=== PATIENT | male | born 1995 | race Caucasian/White ===

== ENCOUNTER 2023-09-06 10:55 | Emergency (ER) | payer OTHER, SELFPAY ==
[2023-09-06 10:57] VITALS: BP 134/76
[2023-09-06 11:30] VITALS: BMI 29.4
[2023-09-06 11:38] VITALS: BP 134/84
--- NOTE | 2023-09-06 11:55 | ED.GENMED ---
History of Present Illness
<Leann Rosas PA-C - Last Filed: 09/08/23 23:58>
General
Chief Complaint: Breathing Problem
Source: patient
Exam Limitations: none
Time Seen by Provider: 09/06/23 11:13
Nursing documentation reviewed up to this point in time: agreed with
Travel History
Have you had any contact with someone who has COVID-19?: No
Do you have any symptoms of coronavirus? Fever > 100 degrees, chills, cough, shortness of breath, sore throat, loss of taste or smell, muscle aches, or headache?: No
History of Present Illness
History of Present Illness:
Patient is a 28-year-old male with history exercise-induced asthma and ADHD presenting for evaluation of persistent fatigue and fever over the past few months with an associated episode of fainting last night. Patient was diagnosed with pneumonia
by PCP in early July and started on a course of antibiotics and steroid. He states that he never fully returned to normal and has been suffering from fatigue ever since. Starting on Wednesday he was feeling especially fatigued and then proceeded
to have multiple bouts of diarrhea throughout the day on Wednesday. Diarrhea has since stopped. Last night he states that he got up from bed for his inhaler since he was feeling short of breath - and while in the bathroom he felt sweaty and
fainted. He did not hit his head. His girlfriend quickly came in and quickly regained consciousness. He endorses fever, cough, congestion, shortness of breath. No chest pain, belly pain, nausea, sore throat.
He has been taking tylenol and mucinex as needed for fever and nasal congestion.
Phy Exam
<Leann Rosas PA-C - Last Filed: 09/08/23 23:58>
Physical Exam
Physical Exam:
General: In mild distress and non-toxic
Vitals: Hemodynamically stable, low-grade fever 99.2 F
HEENT: Atraumatic, normocephalic; pupils equal round react light bilaterally, extraocular muscles intact, protecting airway
Neck: appears supple, no meningeal signs
CV: Regular rate and rhythm, heart sounds normal, no evidence of cyanosis
Resp: No evidence of respiratory stress, lungs clear, no accessory muscle use
Abd: Soft, nontender, non-distended
Extremities: No deformities, no evidence of cyanosis edema
Neuro: alert and oriented to person place time, speech normal, no focal motor deficit
Psych: Somewhat anxious appearing
Skin: Intact, no rashes
Course
<Leann Rosas PA-C - Last Filed: 09/08/23 23:58>
Orders/Labs/Results
Orders:
Orders
09/06/23 11:10
EKG [Electrocardiogram (*1)] Urgent
Reason for Study: Shortness of Breath
09/06/23 11:11
EKG- Treatment ONCE
09/06/23 11:45
Monotest Urgent
09/06/23 11:52
CMP [Comprehensive Metabolic Panel] Urgent
COVID-19 Antigen Urgent
Source: Nasal Swab
Complete Blood Count/With Diff Urgent
INF RAPID [Influenza A+B Rapid Molecular] Urgent
ISABELLA Source: Nasal Swab
Specimen Description:
09/06/23 12:12
CR Chest - 2 Views Urgent
Comment:
Reason For Exam: shortness of breath, cough
09/06/23 12:44
0.9% Sodium Chloride 1000 ml [Nss] 1,000 ml IV BOLUS
Ipratropium/Albuterol Sulfate [Duoneb] 3 ml INH R NOW ONE
Abnormal Lab Results
09/06/23
11:52
WBC 4.3 L 10^3/uL
(4.8-10.8)
Absolute Lymphs (auto) 0.8 L 10^3/uL
(1.2-3.4)
Lymphocytes % 19.0 L %
(20.5-51.1)
Monocytes % 13.0 H %
(1.7-9.3)
Glucose 152 H mg/dl
(70-99)
09/06/23 11:52
09/06/23 11:52
Vital Signs
Initial and Last Documented VS:
Initial Vital Signs
Temp Pulse Resp BP Pulse Ox
99.2 F 97 16 134/76 98
09/06/23 10:57 09/06/23 10:57 09/06/23 10:57 09/06/23 10:57 09/06/23 10:57
Last Documented Vital Signs
Temp Pulse Resp BP Pulse Ox
99.2 F 97 19 132/72 100
09/06/23 10:57 09/06/23 14:45 09/06/23 14:45 09/06/23 14:00 09/06/23 13:44
<Pedro Guzmán DO - Last Filed: 09/06/23 12:48>
Orders/Labs/Results
Orders:
Orders
09/06/23 11:10
EKG [Electrocardiogram (*1)] Urgent
Reason for Study: Shortness of Breath
09/06/23 11:11
EKG- Treatment ONCE
09/06/23 11:45
Monotest Urgent
09/06/23 11:52
CMP [Comprehensive Metabolic Panel] Urgent
COVID-19 Antigen Urgent
Source: Nasal Swab
Complete Blood Count/With Diff Urgent
INF RAPID [Influenza A+B Rapid Molecular] Urgent
ISABELLA Source: Nasal Swab
Specimen Description:
09/06/23 12:12
CR Chest - 2 Views Urgent
Comment:
Reason For Exam: shortness of breath, cough
09/06/23 12:44
0.9% Sodium Chloride 1000 ml [Nss] 1,000 ml IV BOLUS
Ipratropium/Albuterol Sulfate [Duoneb] 3 ml INH R NOW ONE
Abnormal Lab Results
09/06/23
11:52
WBC 4.3 L 10^3/uL
(4.8-10.8)
Absolute Lymphs (auto) 0.8 L 10^3/uL
(1.2-3.4)
Lymphocytes % 19.0 L %
(20.5-51.1)
Monocytes % 13.0 H %
(1.7-9.3)
Glucose 152 H mg/dl
(70-99)
09/06/23 11:52
09/06/23 11:52
Vital Signs
Initial and Last Documented VS:
Initial Vital Signs
Temp Pulse Resp BP Pulse Ox
99.2 F 97 16 134/76 98
09/06/23 10:57 09/06/23 10:57 09/06/23 10:57 09/06/23 10:57 09/06/23 10:57
Last Documented Vital Signs
Temp Pulse Resp BP Pulse Ox
99.2 F 97 19 132/72 100
09/06/23 10:57 09/06/23 14:45 09/06/23 14:45 09/06/23 14:00 09/06/23 13:44
<Leann Rosas PA-C - Last Filed: 09/08/23 23:58>
MDM/Problems Addressed
Differential Diagnosis Includes:
viral URI, influenza, covid, mononucleosis, pneumonia, asthma exacerbation, sinusitis
MDM/Problems Addressed:
Patient is a 28-year-old male presenting for upper respiratory symptoms and fatigue ongoing for the past 2 months. Symptoms worsened acutely over the past few days and describes fever, chills, nasal congestion, body aches.
No chest pain or shortness of breath. 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 Patient mild to moderately ill-appearing on exam. He have very low-grade temp, otherwise hemodynamically stable. Heart rate regular,
lungs coarse but clear. No evidence of edema. Will get basic labs, check flu and COVID. Will check mono given persistent illnesses. Check chest x-ray. Will give DuoNeb.
CBC shows very mild leukopenia and cell insignificant viral illness. CMP unremarkable. Falls negative. COVID-negative. Patient is positive for influenza A.
Chest x-ray shows no evidence of acute disease. He is stable emergency department. He can be safely discharged with return precautions, primary care follow-up. Discussed Tamiflu with patient and patient's mom but given he has had symptoms for
over 48 hours will avoid for now. He can use albuterol inhaler that he has at home as needed for cough, wheezing. He should follow-up with primary care for further evaluation of frequent illnesses. patient and patient's mom comfortable this plan.
All questions answered.
Chronic conditions affecting care:
Asthma
Acute Exacerbation and/or Progression of Chronic Illness:
Influenza
<Leann Rosas PA-C - Last Filed: 09/08/23 23:58>
*Radiology
Radiology exam reviewed: preliminary read by ED provider and radiology read reviewed
*Pulse Oximetry
Patient hypoxic: no
*Te[employer] Route Aide Interpretation
Rate: normal
Interpretation: normal
Heart Rate: 94
Rhythm: sinus
*Critical Care Note
Total Time (30-74mins, 75-104mins- exclusive of procedures): Not Applicable
ED Attending Note
<Leann Rosas PA-C - Last Filed: 09/08/23 23:58>
-
Portions of this chart may have been created with voice recognition software.� Occasional wrong word or��sound alike� substitutions may have occurred due to the inherent limitations of voice recognition software.
<Pedro Guzmán DO - Last Filed: 09/06/23 12:48>
ED Attending Note
Patient seen and examined by attending physician: Yes
I performed the substantive portion of visit, reviewed & personally made and approve the management plan that is documented in note by myself or THIAGO.: Yes
ED Attending Note:
Patient is a 28-year-old male who has been ill intermittently since before . Patient works in preschool. Patient for the past 2 days has not been feeling well with increasing nasal congestion, decreased oral intake. Patient has had
fever, chills, weakness. Patient's had mild shortness of breath and using an inhaler. On physical exam patient does look mildly to moderately ill. Patient has mild dry mucous membranes. Heart is regular lungs are coarse but clear and abdomen
soft nontender. Patient has no edema. Patient tested positive for influenza. It is not surprising given the patient's CBC results. Will check a chest x-ray. Anticipate the patient being discharged.
Discharge Plan
Departure
Patient Disposition: Home (Routine Discharge)
Date of Disposition: 09/06/23
Time of Disposition: 14:29
Patient with high blood pressure during this ER visit?: Yes
Condition: Good
Covid-19: Negative COVID-19
Discharge Problem:
Influenza A
Instructions: Asthma, Adult (DC), Flu, Adult (DC), BLOOD PRESSURE
Referrals:
Jonas Peninngton MD [Family Provider] - Follow up in 1 week
Stand Alone Forms: Return to Work
Activity Restrictions/Additional Instructions:
-Return to the emergency department with high fevers, chest pain, shortness of breath/difficulty breathing, coughing up blood or colored sputum, intractable vomiting, worsening in current symptoms, or any other concerns
-You can use your albuterol inhaler every 4-6 hours as needed for cough/shortness of breath
-Take Tylenol as needed for fever. You can take over the counter decongestants as needed for nasal congestion. It is important to stay well hydrated.
-Follow-up with primary care for further evaluation/treatment and to ensure symptoms are improving.
Interventions
Interventions:
*Risk Screen - Suicide Last Done: 09/06/23 11:49
*General Assessment Last Done: 09/06/23 11:49
*Neglect/Abuse Screening Last Done: 09/06/23 11:49
ED- Fall Risk Assessment Last Done: 09/06/23 11:49
*ED COVID-19 Vaccine History Last Done: 09/06/23 10:57
*Nursing Disposition Last Done: 09/06/23 15:00
ED- Cardiac Assessment Last Done: 09/06/23 11:49
ED- Pulmonary Assessment Last Done: 09/06/23 11:49
Discharge Date and Time
Discharge Date/Time: 09/06/23 15:01
[2023-09-06 12:00] VITALS: BP 119/77
[2023-09-06 12:14] LABS: COVID-19 Antigen Negative (Negative)
[2023-09-06 12:15] LABS: ALT (SGPT) 29 U/L (0-50); AST (SGOT) 26 U/L (17-59); Albumin 4.2 g/dl (3.5-5.0); Alkaline Phosphatase 59 U/L (38-126); Blood Urea Nitrogen 13 mg/dl (9-20); Calcium 9.3 mg/dl (8.4-10.2); Carbon Dioxide 24 mmol/L (22-30); Chloride 100 mmol/L (98-107); Estimated Creatinine Clearance > 125 ml/min; Glucose 152 mg/dl (70-99); Potassium 3.9 mmol/L (3.5-5.1); Sodium 136 mmol/L (135-145); Total Bilirubin 0.6 mg/dl (0.2-1.3); Total Protein 6.6 g/dl (6.3-8.2); eGFR > 60.00
[2023-09-06 12:22] LABS: % Basophils 0.5 % (0-2); % Eosinophils 0.2 % (0-6); % Immature Granulocytes 0.2 % (0-0.5); % Neutrophils 67.1 % (42.2-75.2); Absolute Lymphocytes 0.8 10^3/uL (1.2-3.4); Absolute Monocytes 0.6 10^3/uL (0.1-0.6); Absolute Neutrophils 2.9 10^3/uL (1.4-6.5); Hematocrit 41.4 % (39.0-52.0); Hemoglobin 14.7 g/dL (13.0-18.0); Mean Corp Hgb Conc. 35.5 g/dL (33.0-37.0); Mean Corpuscular Hgb 30.4 pg (27.0-31.0); Mean Corpuscular Volume 85.5 fL (80.0-94.0); Mean Platelet Volume 8.9 fL (7.4-10.4); Nucleated Red Blood Cells % 0 % (-); Platelet Count 236 10^3/uL (130-400); Red Blood Cell Count 4.84 10^6/uL (4.70-6.10); Red Cell Dist. Width 12.1 % (11.5-14.5); White Blood Cell Count 4.3 10^3/uL (4.8-10.8)
[2023-09-06 13:00] VITALS: BP 129/68
[2023-09-06] MEDS: DUONEB 3 ML INH (13:03)
[2023-09-06] MEDS: NSS 1000 IV (13:05)
[2023-09-06 13:35] LABS: Monotest Negative (Negative)
[2023-09-06 13:56] VITALS: BP 136/68
[2023-09-06 14:00] VITALS: BP 132/72
== END 2023-09-06 15:01 | disposition home or self-care (01) ==
LOC: EMR 10:55
PROVIDERS: Physician Assistant; EMERGENCY PHYSICIAN Emergency Medicine; FAMILY PHYSICIAN Family Medicine
DX: J10.1 Influenza due to other identified influenza virus with other respiratory manifestations (principal); R03.0 Elevated blood-pressure reading, without diagnosis of hypertension; Z11.52 Encounter for screening for COVID-19
CPT/HCPCS: 99285; 96360; 94640; 71046; 80053; 85025; 86308; 87502; 87811; 93005